=== PATIENT | female | born 1945 | race Caucasian/White ===

== ENCOUNTER 2016-10-31 09:40 | Day surgery (SDC) | payer OTHER ==
[~2016-10-31] VITALS: Ht 160 cm; Wt 102.1 kg
[~2016-10-31 09:40] MED LIST: ACTOS45 MG PO; ALLOPURINOL300 MG PO; AMLODIPINE BESYL5 MG PO; CARVEDILOL12.5 MG PO; CLONIDINE HCL0.1 MG PO; FOLIC ACID0.4 MG PO; ITCHY EYE5 ML BOTH EYES; LASIX80 MG PO; PRAVACHOL40 MG PO
[2016-10-31 10:18] LABS: HEMATOCRIT 31.1 % (36.0-46.0); MCH 29.9 PG (29.0-34.0); MCHC 29.9 G/DL (30.0-36.0); MEAN PLAT.VOLUME 12.3 uM^3 (9.5-12.4); PLATELET COUNT 171 K/uL (156-360); RBC DIS.WIDTH-CV 16.9 % (11.8-14.6); RBC DIS.WIDTH-SD 61.9 % (39-53); RED BLOOD COUNT 3.11 M/uL (3.80-5.20); WHITE BLOOD COUNT 7.1 K/uL (4.1-10.2)
[2016-10-31 10:39] LABS: ANION GAP 12 MEQ/L (2-14); CHLORIDE 98 MEQ/L (99-109); POTASSIUM 4.6 MEQ/L (3.7-5.4); SAMPLE HEMOLYSIS CHECK 0; SAMPLE ICTERIC CHECK 0; SAMPLE LIPEMIA CHECK 0; SODIUM 138 MEQ/L (136-147)
[2016-10-31 10:45] LABS: GFR ESTIMATE (CALCULATED) 10 mL/min/; GLUCOSE 95 mg/dL (70-99); UREA NITROGEN (BUN) 49 mg/dL (9-23)
[2016-10-31 11:23] LABS: METH RESISTANT S AUREUS PCR NEGATIVE (NEGATIVE)
[2016-10-31 11:51] LABS: PROBE CHECK PASS; SPECIMEN PROCESSING CONTROL PASS
[2016-10-31 14:08] LABS: POINT-OF-CARE METER ID UU13113675
[2016-10-31 14:20] VITALS: BP 181/77
[2016-10-31 15:12] VITALS: BP 170/70
== END 2016-10-31 15:10 | disposition home or self-care (01) ==
LOC: SDC 09:40
PROVIDERS: Surgery
DX: I12.0 Hypertensive chronic kidney disease with stage 5 chronic kidney disease or end stage renal disease (principal); E11.22 Type 2 diabetes mellitus with diabetic chronic kidney disease; N18.6 End stage renal disease; Z99.2 Dependence on renal dialysis; E78.00 Pure hypercholesterolemia, unspecified
CPT/HCPCS: 80048; 82948; 85027; 87641; J0690; J1644; J2250; J2720

== ENCOUNTER → 2016-12-12 | Outpatient (CLI) | payer MEDICARE, OTHER | END | disposition home or self-care (01) | LOC: CDC 15:03 | DX: I49.9 Cardiac arrhythmia, unspecified (principal); I44.0 Atrioventricular block, first degree; R94.31 Abnormal electrocardiogram [ECG] [EKG] | CPT/HCPCS: 93000 ==

== ENCOUNTER → 2017-02-17 | Outpatient (CLI) | payer OTHER ==
[~2017-02-17] MED LIST changes: +ONE DAILY TABL1 EAC1 PO; +VIT C-ROSE HIP500 MG PO
== END | disposition home or self-care (01) ==
LOC: AMB 09:28
PROC: 02PYX3Z Removal of Infusion Device from Great Vessel, External Approach (ICD-10-PCS; principal; 2017-02-17)
DX: Z45.2 Encounter for adjustment and management of vascular access device (principal); N18.6 End stage renal disease; Z99.2 Dependence on renal dialysis